=== PATIENT | female | born 1975 | race Two or more races ===

== ENCOUNTER 2017-09-22 09:06 | Outpatient (RCR) | payer MEDICAID ==
[~2017-09-22] VITALS: Ht 165.1 cm; Wt 117.9 kg
[~2017-09-22 09:06] MED LIST: ALB18R INH; BLOO-1775 MC; BLOO1STR16 MC; BUDE10.2 INH; DESV25TA PO; DUL20 PO; FLU60SYR30 IM ONLY; FLUC150T40 PO; FLUT16SP19 NS; GLY25 PO; INSU100V26 IJ; LANC-1295 MC; LANI SUBQ; MELO-207 PO; PNEI IM; PRED20TA6 PO; [UNRECOGNIZED DRUG - CODE] MC
--- NOTE | 2017-09-24 09:16 | Medical Nutrition Therapy ---
Nutrition Anthropometrics Height (Inches): 65 (stated) Weight (Pounds): 260 (stated) Aiden Nutrition Score: Aiden Nutrition Risk Score: Dietary Referral Nutrition Risk Factors: Nutrition Risk Comment: Nutrition/Food History Breakfast: skips Lunch: leftovers or soup/chips Dinner: 1c starch, meat , 1/4c veg, dessert-pie, cake etc Snacks: 2:00 cheese cracker or leftovers Nutritional Education Nutrition Education Topic: Diabetic Nutrition Learning Readiness: Interested Teaching Methods: Discussion, Handout, Demonstration Response to Teaching: Verbalize understanding, Reinforcement needed Teaching Recipient: Patient Nutrition Counseling: Pt states she is 1/2 and navtive [place] and children's father is [place]. Interested in changing eating habit for children but finances is an issue. Pt does recieve food stamps, refered pt to [facility]. Discussed healthy eating on a budget and encoruaged pt to attend May diabetes support group with [facility] software educator. Reviewed glycemic response to CHO. Encoruage increased low cost protein foods and cutting back on simple carbs. Current diet is high in starchy foods. Provided meal plan of 30-45gm CHO or 1c using plate method. Pt set behavioural goals and support plan. Pt is scheduled for classes. Nutrition Monitoring & Eval RD Patient Assessment Time: 60 minutes Nutritional Comment: Provided 60 minutes diabetes education focusing on nutrtion, behavioural goals and support plan Copies To Copies to: ROLY CHOUDHURY MD, BETH Mar 28, 2018 12:27
[2017-10-18] MEDS ORDERED: GOLYTE PO (09:47)
[2017-10-18] MEDS ORDERED: GLYB1.2524 PO (11:56)
[2017-10-20] MEDS ORDERED: GLY25 PO (09:14)
[2017-10-20] MEDS ORDERED: LANI SUBQ (09:14)
[2017-10-20] MEDS ORDERED: FLUC150T40 PO (09:18)
[2017-10-22] MEDS ORDERED: LANI SUBQ (09:50)
== END 2017-10-27 ==
LOC: MERGE 09:06 → DIET 09:06 → EDSTATUS 09:06
PROVIDERS: ATTEND Internal Medicine
DX: E11.9 Type 2 diabetes mellitus without complications (principal)
CPT/HCPCS: G0108 ×2

== ENCOUNTER 2017-10-27 01:59 | Outpatient (RCR) | payer MEDICAID ==
[~2017-10-27 01:59] MED LIST changes: +GLYB1.2524 PO; +GOLYTE PO
--- NOTE | 2017-10-27 17:04 | Medical Nutrition Therapy ---
Nutritional Education Nutrition Education Topic: Diabetic Nutrition Learning Readiness: Interested Teaching Methods: Discussion, Handout, Demonstration Response to Teaching: Verbalize understanding Teaching Recipient: Patient Nutrition Counseling: Provided group diabetes education on nutrition. Reviewed: process of digestion; function of CHO, protein and fat; glycemic index; reading labels, portion sizes; heart healthy intake; eating out, alcohol. Nutrition Monitoring & Eval RD Patient Assessment Time: 60 minutes Nutritional Comment: Provided 60 minutes diabetes education in group setting focusing on nutrition. Copies To Copies to: ROLY CHOUDHURY MD, BETH October 27, 2017 17:04
[2017-11-18] MEDS ORDERED: ALBU2.5V36 INH (16:17)
[2017-11-18] MEDS ORDERED: PRED20TA6 PO (16:17)
== END 2017-12-01 ==
LOC: DIET 01:59 → EDSTATUS 01:59
PROVIDERS: ATTEND Internal Medicine
DX: Z71.3 Dietary counseling and surveillance (principal); E11.9 Type 2 diabetes mellitus without complications
CPT/HCPCS: G0109 ×2

== ENCOUNTER → 2018-04-11 | Outpatient (CLI) | payer MEDICAID ==
[~2018-04-11] MED LIST changes: +ALBU2.5V36 INH; +AZIT-17 PO; +FLU60VIA41 IM; +PRED-420 PO; +SYRI-1525 MC
[2018-04-11 10:43] LABS: PLATELET COUNT, AUTOMATED 279 K/uL (150-450)
[2018-04-11 10:57] LABS: LDL CHOLESTEROL 84 mg/dl
== END ==
LOC: LAB 08:51
PROVIDERS: ATTEND Internal Medicine
DX: E11.9 Type 2 diabetes mellitus without complications (principal); R79.89 Other specified abnormal findings of blood chemistry; E66.9 Obesity, unspecified; E04.1 Nontoxic single thyroid nodule; B37.3 Candidiasis of vulva and vagina
CPT/HCPCS: 36415; 81001; 82040; 82043; 82247; 82310; 82374; 82435; 82465; 82565; 82947; 83036; 83718; 84075; 84132; 84155; 84295; 84443; 84450; 84460; 84478; 84520; 85025; 87088

== ENCOUNTER 2018-04-26 09:54 | Emergency (ER) | payer MEDICAID ==
--- NOTE | 2018-04-26 11:17 | ER Report ---
History and Physical Time Seen By MD: 11:00 Hx. of Stated Complaint: pt presents from work c/o right greater than left hand swelling, onset this a.m. pt states symptoms are improved at present. BBG 146 on triage. HPI/ROS CHIEF COMPLAINT: Swelling in both hands HISTORY OF PRESENT ILLNESS: This is a 42-year-old female who presents to the emergency department with swelling in both of her hands. Patient states that she has intermittent swelling in her hands, today she was at work and noticed that her hands began to swell she did have both of her hands in a dependent position while she was walking around. Patient states this typically happens when she is ambulating as her arms to hang down. She denies any other complaints, no chest pain or shortness of breath no nausea or vomiting. She is a diabetic. I did ask about her dietary habits, she states she does eat a lot of processed foods which does include a lot of sodium. The swelling is completely resolved at this time, she has no other complaints. REVIEW OF SYSTEMS: Respiratory: No cough, no dyspnea. Cardiovascular: No chest pain, no palpitations. Gastrointestinal: No vomiting, no abdominal pain. Musculoskeletal: As above. Allergies: Coded Allergies: diphenhydramine (Verified Allergy, Severe, SHORTNESS OF BREATH, 04/26/18) Can't breath, heart racing metformin (Verified Allergy, Severe, SHORTNESS OF BREATH, 04/26/18) can't breath, heart races, diziness sertraline (Verified Allergy, Severe, SHORTNESS OF BREATH, 04/26/18) can't breath, heart races, diziness sitagliptin (Verified Allergy, Severe, SHORTNESS OF BREATH, 04/26/18) SOB, HEART RACING acetaminophen (Verified Allergy, Intermediate, Headache, 04/26/18) aripiprazole (Verified Allergy, Unknown, 04/26/18) paroxetine (Verified Allergy, Unknown, 04/26/18) venlafaxine (Verified Adverse Reaction, Intermediate, psychotic, 04/26/18) Uncoded Allergies: Seasonal allergies (Allergy, Intermediate, Unknown, 10/14/17) Home Meds Active Scripts Budesonide/Formoterol Fumarate (SYMBICORT 160-4.5 MCG INHALER) 10.2 Gm Inh, 2 PUFF INH BID, #1 INH 1 Refill Prov:ROLY LEZAMA MD 04/25/18 Lancets (FREESTYLE LANCETS) 1 Each Each, EACH MC QDAY, #1 6 Refills Pt to test blood sugar as directed, and/or at least QDAY. Prov:ROLY LEZAMA MD 04/25/18 Insulin Glargine (LANTUS) 100 Unit/Ml Soln, 20 UNIT SUBQ QHS, #2 BOT 6 Refills add 2 units every 3 days until Fasting Glucose is between 80-120 Prov:ROLY LEZAMA MD 04/11/18 Blood Sugar Diagnostic (FREESTYLE LITE TEST STRIPS) 1 Each Strip, 1 EACH MC QD AY, #90 STRIP 3 Refills Prov:ROLY LEZAMA MD 03/24/18 Syringe & Needle,Insulin,1 Ml (INSULIN SYRINGE) 1 Each Disp.syrin, EACH MC DAILY, #1 3 Refills Prov:ROLY LEZAMA MD 03/04/18 Albuterol Sulfate 0.083% (ALBUTEROL SULFATE 0.083%) 2.5 Mg/3 Ml Vial.neb, 3 ML INH QID PRN for WHEEZING, #1 BOX 0 Refills Prov:NEDA HOPKINS APRN SALES ANALYTICS MANAGER-C 11/18/17 Glyburide (GLYBURIDE) 2.5 Mg Tab, 2.5 MG PO BID, #60 TAB 3 Refills Prov:ROLY LEZAMA MD 10/20/17 Blood-Glucose Meter (FREESTYLE LITE METER) 1 Each Kit, EACH MC DAILY, #1 Pt to test blood sugar as directed and/or at least QDAY. Prov:ROLY LEZAMA MD 03/02/17 Albuterol Sulfate (VENTOLIN HFA) 18 Gm Inh, 2 PUFF INH Q4-6H PRN for DYSPNEA, #1 INH 4 Refills Prov:ROLY LEZAMA MD 03/02/17 Past Medical/Surgical History The patient has a past medical and surgical history of headaches, bronchitis, asthma, colonoscopy, GERD,, disease, cholecystectomy, right shoulder surgery, left toe surgery, carpal tunnel surgery, type II diabetes insulin-dependent, depression, anxiety. Reviewed Nurses Notes: Yes Hx Smoking: No Smoking Status: Never Smoker Exposure to Second Hand Smoke?: No Hx Substance Use Disorder: No Hx Alcohol Use: No Constitutional Vital Sign - Last 24 Hours 04/26/18 04/26/18 10:14 11:42 Temp 98.6 Pulse 87 75 Resp 16 18 B/P (MAP) 128/69 147/89 (108) Pulse Ox 97 94 O2 Delivery Room Air Room Air Physical Exam General Appearance: The patient is alert, has no immediate need for airway pr otection and no current signs of toxicity. Eyes: Pupils equal and round no injection. Respiratory: Chest is non tender, lungs are clear to auscultation. Cardiac: regular rate and rhythm, no murmurs, clicks or rubs. Gastrointestinal: Abdomen is soft and non tender, no masses, bowel sounds normal. Musculoskeletal: Neck: Neck is supple and non tender. Extremities have full range of motion and are non tender. Skin: No rashes or lesions. DIFFERENTIAL DIAGNOSIS: After history and physical exam differential diagnosis was considered for kidney disease, diabetes, dependent edema, congestive heart failure and hypernatremia. Medical Decision Making Data Points Result Diagram: 04/26/18 1122 Laboratory Hematology Test 04/26/18 11:22 Sodium Level 139 mmol/L (137-145) Potassium Level 3.7 mmol/L (3.5-5.0) Chloride Level 104 mmol/L (98-107) Carbon Dioxide Level 26 mmol/L (22-31) Blood Urea Nitrogen 7 mg/dl (7-18) Creatinine 0.50 mg/dl (0.52-1.04) Glomerular Filtration Rate Calc > 60.0 Random Glucose 139 mg/dl (75-110) Calcium Level 9.0 mg/dl (8.4-10.2) Chemistry Test 04/26/18 11:22 Glomerular Filtration Rate Calc > 60.0 Calcium Level 9.0 mg/dl (8.4-10.2) ED Course/Re-evaluation ED Course The patient was admitted to room. A history of sore obtained. Differential diagnoses were considered. After discussion and assessment of the patient, we elected to do a basic metabolic panel as she recently had laboratory studies completed by Dr. Lezama. I did review the laboratory studies. No concerning findings. I did recommend some dietary changes with the patient, trying to reduce the amount of sodium that she was consuming and close monitoring of her blood sugar. The patient expressed understanding. The patient was discharged from the hospital. She was also instructed to follow-up with her primary care provider for reevaluation. Return to the ER for any other concerns or worsening symptoms. Patient had no further questions or concerns at this time and discharged home. Decision to Disposition Date: Apr 26, 2018 Decision to Disposition Time: 11:53 Depart Departure Latest Vital Signs Vital Signs Date Time Temp Pulse Resp B/P (MAP) Pulse Ox O2 Delivery O2 Flow Rate FiO2 04/26/18 11:42 75 18 147/89 (108) 94 Room Air 04/26/18 10:14 98.6 Impression: Primary Impression: Dependent edema Condition: Improved Disposition: HOME OR SELF-CARE Referrals: ROLY LEZAMA MD (PCP) Patient Instructions: Edema (ED), Heart Healthy Diet (ED) Additional Instructions: I believe you are experiencing dependent edema in your hands, which could be complicated by high sodium diet. Although it is difficult with a large family to afford different foods, please pay close attention to the sodium content as a reduction in your diet will likely help the edema, and will ultimately be better for you. Please follow up with your primary care provider as scheduled, or sooner if this continues to be a concern. To help eliminate the edema in the feet and hands try to keep them elevated whenever possible. Drink plenty of water. Get plenty of rest. Return to the ED for any other concerns or worsening symptoms. AMRITA CONTRERAS SALES ANALYTICS MANAGER-BC Apr 26, 2018 11:17
[2018-04-26 11:42] VITALS: BP 147/89
== END 2018-04-26 12:40 | disposition home or self-care (01) ==
LOC: ER 11:10
DX: R60.0 Localized edema (principal); E11.9 Type 2 diabetes mellitus without complications
CPT/HCPCS: 36415; 82310; 82374; 82435; 82565; 82947; 84132; 84295; 84520; 99282

== ENCOUNTER → 2018-09-22 | Outpatient (CLI) | payer MEDICAID ==
[~2018-09-22] MED LIST changes: +FLU150 PO
[2018-09-22 10:46] LABS: PLATELET COUNT, AUTOMATED 265 K/uL (150-450)
[2018-09-22 11:00] LABS: LDL CHOLESTEROL 85 mg/dl
== END ==
LOC: LAB 10:20
PROVIDERS: ATTEND Internal Medicine
DX: E11.9 Type 2 diabetes mellitus without complications (principal); J20.9 Acute bronchitis, unspecified; E04.1 Nontoxic single thyroid nodule
CPT/HCPCS: 36415; 81001; 82040; 82043; 82247; 82310; 82374; 82435; 82465; 82565; 82947; 83036; 83718; 84075; 84132; 84155; 84295; 84443; 84450; 84460; 84478; 84520; 85025

== ENCOUNTER 2018-10-18 08:46 | Emergency (ER) | payer OTHER, MEDICAID ==
[2018-10-18] MEDS ORDERED: ONDANSETRON 4 MG/2 ML VIAL IVP ONE ×2 (09:25→12:00)
[2018-10-18] MEDS ORDERED: NS(*) 0.9% 1000 ML BAG 1,000 ML IV ONE (09:25)
--- NOTE | 2018-10-18 09:34 | ER Report ---
History and Physical Time Seen By MD: 09:33 Hx. of Stated Complaint: DIARRHEA AND VOMTIING THIS AM, GENERALIZED PAIN AND HEADACHE HPI/ROS CHIEF COMPLAINT: vomiting, nausea, diarrhea HISTORY OF PRESENT ILLNESS: Patient is a 43-year-old female here with complaints of vomiting, nausea, diarrhea, generalized body aches, headache since this morning. Patient is nontoxic appearing at time of evaluation, mildly tachycardic. Denies recent illnesses. Denies chest pain, shortness breath. REVIEW OF SYSTEMS: Constitutional: + fever, + chills. Eyes: No discharge. ENT: No sore throat. Cardiovascular: No chest pain, no palpitations. Respiratory: No cough, no shortness of breath. Gastrointestinal: No abdominal pain, + nausea vomiting. Genitourinary: No hematuria. Musculoskeletal: Diffuse body aches Skin: No rashes. Neurological: No headache. Allergies: Coded Allergies: diphenhydramine (Verified Allergy, Severe, SHORTNESS OF BREATH, 04/26/18) Can't breath, heart racing metformin (Verified Allergy, Severe, SHORTNESS OF BREATH, 04/26/18) can't breath, heart races, diziness sertraline (Verified Allergy, Severe, SHORTNESS OF BREATH, 04/26/18) can't breath, heart races, diziness sitagliptin (Verified Allergy, Severe, SHORTNESS OF BREATH, 04/26/18) SOB, HEART RACING acetaminophen (Verified Allergy, Intermediate, Headache, 04/26/18) aripiprazole (Verified Allergy, Unknown, 04/26/18) paroxetine (Verified Allergy, Unknown, 04/26/18) venlafaxine (Verified Adverse Reaction, Intermediate, psychotic, 04/26/18) Uncoded Allergies: Seasonal allergies (Allergy, Intermediate, Unknown, 10/14/17) Home Meds Active Scripts Promethazine HCl (Phenergan) 25 Mg Supp.rect, 25 MG MN Q8-12H PRN for NAUSEA, #10 SUPP.RECT Prov:RUDOLPH MARVIN DO 10/18/18 Ondansetron 4 Mg Odt (ONDANSETRON 4 MG ODT) 4 Mg Tab.rapdis, 4 MG PO Q4-6H PRN for NAUSEA, #30 TAB Prov:RUDOLPH MARVIN DO 10/18/18 Blood Sugar Diagnostic (FREESTYLE LITE TEST STRIPS) 1 Each Strip, 1 EACH MC TID, #180 STRIP 0 Refills Prov:ROLY CHOUDHURY MD 06/14/18 Albuterol Sulfate (VENTOLIN HFA) 18 Gm Inh, 2 PUFF INH Q4-6H PRN for DYSPNEA, #1 INHALER 2 Refills Prov:ROLY CHOUDHURY MD 06/14/18 Budesonide/Formoterol Fumarate (SYMBICORT 160-4.5 MCG INHALER) 10.2 Gm Inh, 2 PUFF INH BID, #1 INH 1 Refill Prov:ROLY CHOUDHURY MD 04/25/18 Lancets (FREESTYLE LANCETS) 1 Each Each, EACH MC QDAY, #1 6 Refills Pt to test blood sugar as directed, and/or at least QDAY. Prov:ROLY CHOUDHURY MD 04/25/18 Insulin Glargine (LANTUS) 100 Unit/Ml Soln, 20 UNIT SUBQ QHS, #2 BOT 6 Refills add 2 units every 3 days until Fasting Glucose is between 80-120 Prov:ROLY CHOUDHURY MD 04/11/18 Syringe & Needle,Insulin,1 Ml (INSULIN SYRINGE) 1 Each Disp.syrin, EACH MC SUBHASH Y, #1 3 Refills Prov:ROLY CHOUDHURY MD 03/04/18 Glyburide (GLYBURIDE) 2.5 Mg Tab, 2.5 MG PO BID, #60 TAB 3 Refills Prov:ROLY CHOUDHURY MD 10/20/17 Blood-Glucose Meter (FREESTYLE LITE METER) 1 Each Kit, EACH MC DAILY, #1 Pt to test blood sugar as directed and/or at least QDAY. Prov:ROLY CHOUDHURY MD 03/02/17 Discontinued Scripts Azithromycin (Z-PACK) 250 Mg Tablet, 0 PO QDAY, #6 DOSE-PACK Prov:ROLY CHOUDHURY MD 09/05/18 Albuterol Sulfate 0.083% (ALBUTEROL SULFATE 0.083%) 2.5 Mg/3 Ml Vial.neb, 3 ML INH QID PRN for WHEEZING, #1 BOX 0 Refills Prov:NEDA HOPKINS APRN LIFE CYCLE ASSESSMENT ANALYST-C 11/18/17 Hx Smoking: No Smoking Status: Never Smoker Exposure to Second Hand Smoke?: No Hx Substance Use Disorder: No Hx Alcohol Use: No Constitutional Physical Exam General Appearance: The patient is alert, has no immediate need for airway protection and no signs of toxicity. Nontoxic-appearing Eyes: Pupils equal and round no pallor or injection. ENT, Mouth: Mucous membranes are moist. Respiratory: There are no retractions, lungs are clear to auscultation. Cardiovascular: Regular rate and rhythm. Gastrointestinal: Abdomen is soft and non tender, no masses, bowel sounds n ormal. Neurological: No focal neurological deficits Skin: Warm and dry, no rashes. Musculoskeletal: Neck is supple non tender. Extremities are nontender, nonswollen and have full range of motion. DIFFERENTIAL DIAGNOSIS: After history and physical exam differential diagnosis was considered for adult fever including but not limited to viral syndromes including influenza, urinary tract infection, pneumonia and sepsis. Medical Decision Making Data Points Laboratory Hematology Test 10/18/18 09:00 10/18/18 09:45 10/18/18 09:55 Urine Color Yellow Urine Clarity Cloudy Urine pH 5.0 pH (4.8-9.5) Urine Specific [place] 1.024 Urine Protein Negative mg/dL (NEGATIVE) Urine Glucose (UA) 500 mg/dL (NEGATIVE) Urine Ketones Trace mg/dL (NEGATIVE) Urine Blood Negative (NEGATIVE) Urine Nitrite Negative (NEGATIVE) Urine Bilirubin Negative (NEGATIVE) Urine Urobilinogen Negative mg/dL (0.2-1.9) Urine Leukocyte Esterase Negative (NEGATIVE) Urine RBC None /HPF (0-2/HPF) Urine WBC 2 /HPF (0-5/HPF) Urine Squamous Epithelial Cells Many /LPF (</=FEW) Urine Bacteria Moderate /HPF (NONE-FEW) Urine Mucus Few /HPF (NONE-FEW) Red Blood Count 5.08 M/uL (4.17-5.56) Mean Corpuscular Volume 89.8 fL (80.0-96.0) Mean Corpuscular Hemoglobin 30.7 pg (26.0-33.0) Mean Corpuscular Hemoglobin Concent 34.2 g/dL (32.0-36.0) Red Cell Distribution Width 13.1 % (11.5-14.5) Mean Platelet Volume 8.0 fL (7.2-11.1) Neutrophils (%) (Auto) 86.7 % (39.4-72.5) Lymphocytes (%) (Auto) 8.7 % (17.6-49.6) Monocytes (%) (Auto) 3.3 % (4.1-12.4) Eosinophils (%) (Auto) 1.1 % (0.4-6.7) Basophils (%) (Auto) 0.2 % (0.3-1.4) Nucleated RBC Relative Count (auto) 0.0 /100WBC Neutrophils # (Auto) 7.2 K/uL (2.0-7.4) Lymphocytes # (Auto) 0.7 K/uL (1.3-3.6) Monocytes # (Auto) 0.3 K/uL (0.3-1.0) Eosinophils # (Auto) 0.1 K/uL (0.0-0.5) Basophils # (Auto) 0.0 K/uL (0.0-0.1) Nucleated RBC Absolute Count (auto) 0.00 K/uL Sodium Level 138 mmol/L (137-145) Potassium Level 3.8 mmol/L (3.5-5.0) Chloride Level 102 mmol/L (98-107) Carbon Dioxide Level 28 mmol/L (22-31) Blood Urea Nitrogen 10 mg/dl (7-18) Creatinine 0.50 mg/dl (0.52-1.04) Glomerular Filtration Rate Calc > 60.0 Random Glucose 205 mg/dl (75-110) Calcium Level 8.8 mg/dl (8.4-10.2) Total Bilirubin 1.0 mg/dl (0.2-1.3) Aspartate Amino Transf (AST/SGOT) 32 U/L (0-35) Alanine Aminotransferase (ALT/SGPT) 41 U/L (0-56) Alkaline Phosphatase 73 U/L (0-126) Total Protein 7.3 g/dl (6.3-8.2) Albumin 4.0 g/dl (3.5-5.0) Human Chorionic Gonadotropin, Qual Negative (NEGATIVE) Influenza Virus Type A (PCR) Negative (NEGATIVE) Influenza Virus Type B (PCR) Negative (NEGATIVE) Chemistry Test 10/18/18 09:00 10/18/18 09:45 10/18/18 09:55 Urine Color Yellow Urine Clarity Cloudy Urine pH 5.0 pH (4.8-9.5) Urine Specific [place] 1.024 Urine Protein Negative mg/dL (NEGATIVE) Urine Glucose (UA) 500 mg/dL (NEGATIVE) Urine Ketones Trace mg/dL (NEGATIVE) Urine Blood Negative (NEGATIVE) Urine Nitrite Negative (NEGATIVE) Urine Bilirubin Negative (NEGATIVE) Urine Urobilinogen Negative mg/dL (0.2-1.9) Urine Leukocyte Esterase Negative (NEGATIVE) Urine RBC None /HPF (0-2/HPF) Urine WBC 2 /HPF (0-5/HPF) Urine Squamous Epithelial Cells Many /LPF (</=FEW) Urine Bacteria Moderate /HPF (NONE-FEW) Urine Mucus Few /HPF (NONE-FEW) White Blood Count 8.3 k/uL (4.5-11.0) Red Blood Count 5.08 M/uL (4.17-5.56) Hemoglobin 15.6 g/dL (12.0-16.0) Hematocrit 45.6 % (34.0-47.0) Mean Corpuscular Volume 89.8 fL (80.0-96.0) Mean Corpuscular Hemoglobin 30.7 pg (26.0-33.0) Mean Corpuscular Hemoglobin Concent 34.2 g/dL (32.0-36.0) Red Cell Distribution Width 13.1 % (11.5-14.5) Platelet Count 222 K/uL (150-450) Mean Platelet Volume 8.0 fL (7.2-11.1) Neutrophils (%) (Auto) 86.7 % (39.4-72.5) Lymphocytes (%) (Auto) 8.7 % (17.6-49.6) Monocytes (%) (Auto) 3.3 % (4.1-12.4) Eosinophils (%) (Auto) 1.1 % (0.4-6.7) Basophils (%) (Auto) 0.2 % (0.3-1.4) Nucleated RBC Relative Count (auto) 0.0 /100WBC Neutrophils # (Auto) 7.2 K/uL (2.0-7.4) Lymphocytes # (Auto) 0.7 K/uL (1.3-3.6) Monocytes # (Auto) 0.3 K/uL (0.3-1.0) Eosinophils # (Auto) 0.1 K/uL (0.0-0.5) Basophils # (Auto) 0.0 K/uL (0.0-0.1) Nucleated RBC Absolute Count (auto) 0.00 K/uL Glomerular Filtration Rate Calc > 60.0 Calcium Level 8.8 mg/dl (8.4-10.2) Total Bilirubin 1.0 mg/dl (0.2-1.3) Aspartate Amino Transf (AST/SGOT) 32 U/L (0-35) Alanine Aminotransferase (ALT/SGPT) 41 U/L (0-56) Alkaline Phosphatase 73 U/L (0-126) Total Protein 7.3 g/dl (6.3-8.2) Albumin 4.0 g/dl (3.5-5.0) Human Chorionic Gonadotropin, Qual Negative (NEGATIVE) Influenza Virus Type A (PCR) Negative (NEGATIVE) Influenza Virus Type B (PCR) Negative (NEGATIVE) Urinalysis Test 10/18/18 09:00 Urine Color Yellow Urine Clarity Cloudy Urine pH 5.0 pH (4.8-9.5) Urine Specific [place] 1.024 Urine Protein Negative mg/dL (NEGATIVE) Urine Glucose (UA) 500 mg/dL (NEGATIVE) Urine Ketones Trace mg/dL (NEGATIVE) Urine Blood Negative (NEGATIVE) Urine Nitrite Negative (NEGATIVE) Urine Bilirubin Negative (NEGATIVE) Urine Urobilinogen Negative mg/dL (0.2-1.9) Urine Leukocyte Esterase Negative (NEGATIVE) Urine RBC None /HPF (0-2/HPF) Urine WBC 2 /HPF (0-5/HPF) Urine Squamous Epithelial Cells Many /LPF (</=FEW) Urine Bacteria Moderate /HPF (NONE-FEW) Urine Mucus Few /HPF (NONE-FEW) ED Course/Re-evaluation ED Course Patient is a 43-year-old female here with complaints of fever, nausea, diarrhea, body aches, influenza negative. Labs are unremarkable, electrolytes are stable. Patient was given IV fluid bolus, antiemetics, analgesics and had significant improvement symptoms. Patient was hemodynamically stable throughout course. Patient likely has a viral syndrome and was recommended to follow-up with her PCP in the next 24-48 hours. Patient was stable at time of discharge, return precautions were provided Decision to Disposition Date: Oct 18, 2018 Decision to Disposition Time: 12:24 Depart Departure Latest Vital Signs Impression: Primary Impression: Viral syndrome Condition: Improved Disposition: HOME OR SELF-CARE Referrals: NEDA HOPKINS APRN LIFE CYCLE ASSESSMENT ANALYST-C (PCP) New Scripts Promethazine HCl (Phenergan) 25 Mg Supp.rect 25 MG MN Q8-12H PRN for NAUSEA, #10 SUPP.RECT Prov: RUDOLPH MARVIN DO 10/18/18 Ondansetron 4 Mg Odt (ONDANSETRON 4 MG ODT) 4 Mg Tab.rapdis 4 MG PO Q4-6H PRN for NAUSEA, #30 TAB Prov: RUDOLPH MARVIN DO 10/18/18 Patient Instructions: Viral Syndrome (DC) Additional Instructions: Please drink plenty of water, may take 1 tablet of Zofran every 4-6 hours as needed for nausea, Phenergan and one suppository every 8-12 hours as needed for breakthrough nausea and vomiting. Please return promptly if you develop worsening symptoms, inability to keep down food or fluids, blood in the stools or urine. RUDOLPH MARVIN DO Oct 18, 2018 09:34
[2018-10-18 09:57] LABS: PLATELET COUNT, AUTOMATED 222 K/uL (150-450)
[2018-10-18 10:00] VITALS: BP 120/80
[2018-10-18] MEDS ORDERED: IBUPROFEN 200 MG TAB PO ONE (10:50)
[2018-10-18] MEDS ORDERED: PROM25SU8 PR (12:28)
[2018-10-18] MEDS ORDERED: ONDA4TAB9 PO (12:28)
== END 2018-10-18 12:45 | disposition home or self-care (01) ==
LOC: ER 09:44
DX: B34.9 Viral infection, unspecified (principal)
CPT/HCPCS: 81001; 84703; 85025; 87502; 96361; 96374; 96376; 99284; J2405; J7030; 82040; 82247; 82310; 82374; 82435; 82565; 82947; 84075; 84132; 84155; 84295; 84450; 84460; 84520